=== PATIENT | female | born 1935 | race Caucasian/White ===

== ENCOUNTER 2016-12-24 11:30 | Observation (INO) ==
[2016-12-24] MEDS ORDERED: TYLENOL PO PRN (12:51)
[2016-12-24] MEDS ORDERED: ZOFRAN IV PRN (12:51)
[2016-12-24 13:30] LABS: MANUAL DIFF NEEDED? NO
[2016-12-24 13:40] LABS: BASO% 0.5 % (0.0-0.8); EOS# 0.04 X1000 (0.0-0.7); EOS% 0.6 % (0.0-10.0); HEMATOCRIT 42.1 % (37.0-47.0); HEMOGLOBIN 13.7 g/dL (12.0-16.0); IMM GRAN# 0.02 X1000 (0.0-0.04); IMM GRAN% 0.3 % (0.0-0.5); LYMPH# 0.95 X1000 (1.2-3.4); LYMPH% 15.2 % (20.5-51.1); MCH 31.3 PG (27-31); MCHC 32.5 g/dL (33-37); MCV 96.1 FL (81-99); MONO# 0.54 X1000 (0.11-0.59); MONO% 8.7 % (1.7-9.3); MPV 9.7 FL (7.4-10.4); NEUT% 74.7 % (42.2-75.2); PLT 297 X1000 (130-400); RBC 4.38 XMIL (4.2-5.4)
[2016-12-24 14:08] LABS: AGAP 9; ALBUMIN 3.7 g/dL (3.5-5.0); ALKALINE PHOSPHATASE 91 U/L (32-104); BUN 21 mg/dL (8-22); CALCIUM 9.4 mg/dL (8.8-10.2); CHLORIDE 104 mmol/L (98-107); COSMO 284; GOT 19 U/L (10-30); GPT 14 U/L (10-36); POTASSIUM 4.5 mmol/L (3.5-5.1); SODIUM 140 mmol/L (136-145); TCO2 27 mmol/L (25-35); TOTAL PROTEIN 6.7 g/dL (6.3-8.3)
[2016-12-24] MEDS ORDERED: HUMALOG DOSE (PARKWAY) SUBQ SCH (16:00)
[2016-12-24] MEDS ORDERED: VANCOMYCIN IV PER PHARMACY MISC SCH (16:30)
[2016-12-24] MEDS ORDERED: VANCOMYCIN 1,500 MG in NS 250 ML IV ONE ×2 (17:00→18:00)
[2016-12-24] MEDS: ROCEPHIN 1 GM/NS 1 GM/50 ML IVPB IV SCH (18:39)
[2016-12-24] MEDS: NS 1,000 ML IV SCH (18:39)
[2016-12-25 06:06] LABS: HEMATOCRIT 40.2 % (37.0-47.0); HEMOGLOBIN 12.9 g/dL (12.0-16.0); MCH 30.9 PG (27-31); MCHC 32.1 g/dL (33-37); MCV 96.2 FL (81-99); MPV 9.8 FL (7.4-10.4); RBC 4.18 XMIL (4.2-5.4)
[2016-12-25 06:39] LABS: AGAP 9; BUN 21 mg/dL (8-22); CALCIUM 9.4 mg/dL (8.8-10.2); CHLORIDE 105 mmol/L (98-107); COSMO 286; POTASSIUM 3.9 mmol/L (3.5-5.1); SODIUM 142 mmol/L (136-145); TCO2 28 mmol/L (25-35)
[2016-12-25] MEDS: FISH OIL CONCENTRATE PO SCH ×2 (10:36→21:24)
[2016-12-25] MEDS: NEXIUM PO SCH ×2 (10:36→21:23)
[2016-12-25] MEDS: PREDNISONE PO SCH (10:36)
[2016-12-25] MEDS: [UNRECOGNIZED DRUG - OTHER] PO SCH ×2 (10:36→21:25)
[2016-12-25] MEDS: DITROPAN XL PO SCH ×2 (10:36→21:24)
[2016-12-25] MEDS: THERA M PLUS PO SCH (10:36)
--- NOTE | 2016-12-25 11:08 | PROGRESS NOTE ---
DATE: 12/25/2016 SUBJECTIVE: The patient without any new complaints. Unsure if her left lower extremity is better. However, she denies any current fevers. PHYSICAL: Temperature 95, pulse 72, respiratory 18, BP 128/78. General: The patient is awake, alert. She is currently in no respiratory distress. Speech is regular. Neck supple. CV: Regular rate. Chest: Relatively clear. Abdomen is soft. Extremities: Moves all extremities. Skin: She is noted to have a large eschar on her left sams from a wound. It seems to be improving. She has a little bit less erythema than she did yesterday, although she has not been up on this extremity. LABORATORY DATA: Stable. ASSESSMENT: 1. Cellulitis. 2. Fever likely secondary to her cellulitis. 3. Hypertension. 4. Overactive bladder. 5. Mild dementia. 6. Chronic neuropathy. PLAN: We will continue as noted. Continue her home medications. Continue Rocephin and vancomycin today. Hopefully, home in 1-2 days, and she can follow up outpatient with wound therapy. cc: Jatin Zuleta MD
[2016-12-25] MEDS: NS 1,000 ML IV SCH ×2 (14:02→21:25)
[2016-12-25] MEDS: NORCO-7.5 PO PRN ×2 (15:06→21:24)
--- NOTE | 2016-12-25 15:32 | HISTORY AND PHYSICAL ---
CHIEF COMPLAINT: Cellulitis, left lower extremity. Failed outpatient treatment. 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 She is unsure how she obtained this wound. She noted to have a skin flap, which she cut off at home, and shortly after this she began to develop this redness and erythema. She states that she has taken antibiotics at home given by primary care physician with no improvement in symptoms. She did have subjective fevers, along with some chills. She denied any chest pain, palpitations, shortness of breath, or cough. PAST MEDICAL HISTORY: DVT, right lower extremity; COPD; gastroesophageal reflux disease; left breast cancer; fibromyalgia. PAST SURGICAL HISTORY: Hysterectomy, laminectomy, right hip replacement, knee replacement, right breast lumpectomy. SOCIAL HISTORY: She denies alcohol, tobacco, or illicit drug use. ALLERGIES: Sulfa, which causes a rash. HOME MEDICATIONS: A list will be obtained. REVIEW OF SYSTEMS: A 14-point review of systems is discussed with patient, with pertinent positives stated in the HPI. She denies chest pain, palpitations, PND, orthopnea, cough, nausea, vomiting, diarrhea, constipation, black or bloody vomitus, black or bloody stools, hematuria, dysuria, frequency, urgency. PHYSICAL EXAMINATION: GENERAL: This is an 81-year-old female who is sitting up in the bed in no distress. VITAL SIGNS: Blood pressure is 121/78 with a heart rate of 96, respirations are 18, temperature is 98.7 degrees oral with room air saturations of 98% to 100%. HEENT: Head is normocephalic, atraumatic. Pupils equal, round, react to light. EOMs are intact. Sclerae are not icteric. Mucous membranes are moist. NECK: Supple. Trachea midline. CARDIOVASCULAR: Regular rate and rhythm. S1 and S2 appreciated. PULMONARY: Breath sounds are clear, with no increased work of breathing noted. GASTROINTESTINAL: Abdomen is soft, nontender, nondistended, with bowel sounds in all 4 quadrants. BACK: No CVAT. No spine tenderness. MUSCULOSKELETAL: Good range of motion of joints. EXTREMITIES: No clubbing, cyanosis, or edema. Pulses are palpable x4. Calves nontender. SKIN: Warm and dry, with a large area of eschar noted to her left sams with erythema surrounding. ASSESSMENT: 1. Wound, left sams. 2. Cellulitis to left sams. 3. Fever secondary to cellulitis. 4. Hypertension. 5. Overactive bladder. 6. Mild dementia. 7. Chronic neuropathy. PLAN: The patient will be admitted to the hospital. We will obtain blood cultures as well as a wound culture if there is any drainage. We will get a CBC and CMP. We will identify her home medications and continue as appropriate. As she has been on antibiotics prior to admission, we will start Rocephin and vancomycin. If cultures return positive, then antibiotics may be changed as appropriate to culture results. Further treatments pending hospital course. Dictated by NENA Logan for Jatin Zuleta MD cc: NENA Logan MD
[2016-12-25] MEDS: ROCEPHIN 1 GM/NS 1 GM/50 ML IVPB IV SCH (15:52)
[2016-12-25] MEDS ORDERED: VANCOMYCIN 1,200 MG in NS 250 ML IV SCH (18:00)
[2016-12-25] MEDS ORDERED: RANEXA PO SCH (21:00)
[2016-12-25] MEDS ORDERED: ARICEPT PO SCH (21:00)
[2016-12-25] MEDS ORDERED: LYRICA PO SCH (21:00)
[2016-12-25] MEDS ORDERED: ELAVIL PO SCH (21:00)
[2016-12-26] MEDS: NS 1,000 ML IV SCH (05:29)
[2016-12-26 05:56] VITALS: BP 149/83
[2016-12-26] MEDS: [UNRECOGNIZED DRUG - OTHER] PO SCH (08:17)
[2016-12-26] MEDS: PREDNISONE PO SCH (08:18)
[2016-12-26] MEDS: NEXIUM PO SCH (08:18)
[2016-12-26] MEDS: THERA M PLUS PO SCH (08:18)
[2016-12-26] MEDS: FISH OIL CONCENTRATE PO SCH (08:18)
[2016-12-26] MEDS: DITROPAN XL PO SCH (08:18)
--- NOTE | 2016-12-27 04:35 | DISCHARGE SUMMARY ---
ADMISSION DATE: 12/24/2016 DISCHARGE DATE: 12/26/2016 DISCHARGE DIAGNOSES: 1. Cellulitis of the left lower extremity, improved. 2. Fever secondary to cellulitis, resolved. 3. Hypertension. 4. Overactive bladder. 5. Chronic neuropathy. CONSULTATIONS: None. PROCEDURE: None. HOSPITAL COURSE: Patient is an 81-year-old female who was admitted as noted on the HPI. Treated in the usual fashion. Thankfully, she had an uneventful hospital course. Her left lower extremity redness continued to improve. She was afebrile throughout the hospital stay. On discharge, she was awake, alert, oriented, and will therefore be discharged home. DISPOSITION: The patient will be discharged home. She will continue her home medications without any changes. She will follow up in the office in 1-2 weeks to re-evaluate the lower extremity. If the redness comes back, then we will send her to wound therapy for debridement of the eschar. The patient will be discharged home on Keflex for 7 more days. cc: Jatin Zuleta MD
--- NOTE | 2016-12-27 04:54 | DISCHARGE SUMMARY ---
ADMISSION DATE: 12/24/2016 DISCHARGE DATE: 12/26/2016 DIAGNOSES: 1. Cellulitis, left sams. 2. Fever, likely secondary to cellulitis, resolved. 3. Hypertension. 4. Overactive bladder. 5. Mild dementia. 6. Chronic neuropathy. DISCHARGE PHYSICAL EXAMINATION: Cardiovascular: Regular rate and rhythm. S1 and S2 are appreciated. Pulmonary: Breath sounds are clear with no increased work of breathing noted. Gastrointestinal: Abdomen is soft, nontender, nondistended. Bowel sounds in all 4 quadrants. Extremities: No clubbing, cyanosis, or edema. Calves are nontender. Pulses are palpable x4. She does have a large eschar noted to her left sams with no redness noted. She does state that pain is better. HOSPITAL COURSE: Ms. Cade presented as a direct admit from her primary care physician's office for cellulitis to her left lower extremity. Blood cultures have returned no growth at 48 hours. Left sams wound continues with an eschar with resolution of her erythema. She has remained afebrile with white counts in the 5-6 range. We did monitor electrolytes. Everything was within normal limits. We did continue her home medications. DISCHARGE MEDICATIONS: Lyrica 75 mg daily, prednisone 10 mg daily, oxybutynin ER 5 b.i.d., Vicodin 7.5/300 q.4 hours p.r.n., glucosamine with chondroitin b.i.d., Nexium 40 b.i.d., Aricept 5 at bedtime, amitriptyline 75 at bedtime, Ranexa 500 at bedtime, Keflex 500 mg p.o. t.i.d. FOLLOWUP: She is to follow up with Dr. Zuleta or Denisha in the next 1-2 weeks, sooner for a temperature greater than 101.5, any return of drainage, redness, warmth, or edema, any increase in pain, or for any questions or concerns that she may have. She is being discharged home in stable condition with family members. TIME SPENT: This is a greater than 30 minute discharge. Dictated by NENA Logan for Jatin Zuleta MD cc: NENA Logan MD
== END 2016-12-26 12:30 | disposition home or self-care (01) ==
LOC: INTOOBSV 11:30 → P.DIRADM 11:30 → P.MEDSURG 11:52
PROVIDERS: ADMIT Family Medicine; ATTEND Family Medicine